=== PATIENT | female | born 1955 | race Caucasian/White ===

== ENCOUNTER 2016-12-04 14:42 | Outpatient (CLI) | payer OTHER | END 2016-12-04 14:43 | disposition home or self-care (01) | DX: E05.90 Thyrotoxicosis, unspecified without thyrotoxic crisis or storm (principal); Z79.899 Other long term (current) drug therapy ==

== ENCOUNTER 2017-07-26 15:47 | Outpatient (CLI) | payer OTHER ==
[2017-07-26 18:40] LABS: THYROID STIMULATING HORMONE 1.44 uIU/mL (0.34-5.60)
== END 2017-07-26 23:59 | disposition home or self-care (01) ==
LOC: LAB.S 15:47
PROVIDERS: ATTEND Nurse Practitioner Family
DX: E05.90 Thyrotoxicosis, unspecified without thyrotoxic crisis or storm (principal)
CPT/HCPCS: 36415; 84439; 84443

== ENCOUNTER 2017-09-29 08:25 | Outpatient (CLI) | payer OTHER ==
--- NOTE | 2017-10-01 14:02 | Mammography Report ---
DATE OF SERVICE: 09/29/2017 DIGITAL SCREENING MAMMOGRAM: 09/30/2017 CLINICAL INDICATION: A 62-year-old for screening. COMPARISON: 09/2016, 09/2015, 09/2014, 09/2013, 08/2012, 06/2011, 05/2010. TECHNIQUE: Routine CC and MLO projections were obtained of the breasts. FINDINGS: The breasts demonstrate heterogeneously dense fibroglandular parenchyma bilaterally. [place], typically benign calcifications are present, no suspicious masses, clustered microcalcifications, or regions of architectural distortion are identified. IMPRESSION: Benign findings. RECOMMENDATION: Routine annual screening unless otherwise clinically indicated. BIRADS category 2 - benign findings. STANDARD QUALIFYING STATEMENTS: 1. This examination was reviewed with the aid of Computer-Aided Detection (CAD). 2. A negative or benign imaging report should not delay biopsy if clinically suspicious findings are present. Consider surgical consultation if warranted. More than 5% of cancers are not identified by imaging. 3. Dense breasts may obscure an underlying neoplasm. TD: 09/30/2017 11:36
== END 2017-09-29 08:26 | disposition home or self-care (01) ==
LOC: DI.S 08:25
PROVIDERS: ATTEND Nurse Practitioner Family
DX: Z12.39 Encounter for other screening for malignant neoplasm of breast (principal)
CPT/HCPCS: 77067

== ENCOUNTER 2017-10-11 08:00 | Outpatient (CLI) | payer OTHER ==
[2017-10-11 18:10] LABS: CALCIUM 9.4 mg/dL (8.5-10.3); CREATININE 0.9 mg/dL (0.4-1.0)
[2017-10-11 19:57] LABS: HB2 TOTAL 15.1 g/dL; HEMOGLOBIN A1C 0.6 g/dL; HEMOGLOBIN A1C % 5.8 % (4.6-6.2)
== END 2017-10-11 08:01 | disposition home or self-care (01) ==
LOC: LAB.S 08:00
PROVIDERS: ATTEND Nurse Practitioner Family
DX: R73.01 Impaired fasting glucose (principal)
CPT/HCPCS: 36415; 80048; 83036

== ENCOUNTER 2018-02-11 11:02 | Outpatient (CLI) | payer OTHER | END 2018-02-11 11:03 | disposition home or self-care (01) | LOC: LAB.F 11:02 | PROVIDERS: ATTEND Obstetrics & Gynecology | DX: Z11.3 Encounter for screening for infections with a predominantly sexual mode of transmission (principal) | CPT/HCPCS: 36415; 81599 ==

== ENCOUNTER 2018-02-11 14:08 | Outpatient (CLI) | payer OTHER ==
[2018-02-14 17:02] LABS: HSV 2 DNA NOT DETECTED; SOURCE VULVAR LESION
== END 2018-02-11 14:09 | disposition home or self-care (01) ==
LOC: LAB.R 14:08
PROVIDERS: ATTEND Obstetrics & Gynecology
DX: N90.89 Other specified noninflammatory disorders of vulva and perineum (principal); Z11.3 Encounter for screening for infections with a predominantly sexual mode of transmission
CPT/HCPCS: 36415; 81599; 86592; 87529

== ENCOUNTER 2019-01-09 07:19 | Outpatient (CLI) | payer OTHER ==
[2019-01-09 11:00] LABS: BASOPHILS # (AUTO) 0.1 10^3/uL (0.0-0.1); BASOPHILS % (AUTO) 1.1 %; EOSINOPHILS # (AUTO) 0.2 10^3/uL (0.0-0.7); EOSINOPHILS % (AUTO) 4.3 %; HGB - HEMOGLOBIN 13.8 g/dL (12.0-16.0); LYMPHOCYTES # (AUTO) 1.7 10^3/uL (1.5-3.5); LYMPHOCYTES % (AUTO) 29.8 %; MEAN CORPUSCULAR HEMOGLOBIN 27.9 pg (27.0-31.0); MEAN CORPUSCULAR HGB CONC 33.2 g/dL (32.0-36.0); MEAN CORPUSCULAR VOLUME 84.2 fL (81.0-99.0); MEAN PLATELET VOLUME 8.2 fL (7.9-10.8); MONOCYTES # (AUTO) 0.4 10^3/uL (0.0-1.0); MONOCYTES % (AUTO) 7.3 %; NEUTROPHILS # (AUTO) 3.3 10^3/uL (1.5-6.6); NEUTROPHILS % (AUTO) 57.5 %; PLT - PLATELET COUNT 294 10^3/uL (130-450); RED BLOOD COUNT 4.93 10^6/uL (4.20-5.40); RED CELL DISTRIBUTION WIDTH 13.5 % (12.0-15.0); WHITE BLOOD COUNT 5.8 x10^3/uL (4.8-10.8)
[2019-01-09 11:38] LABS: ALBUMIN/GLOBULIN RATIO 1.1 (1.0-2.2); ALKALINE PHOSPHATASE 92 IU/L (42-121); ALT ALANINE AMINOTRANSFERASE 17 IU/L (10-60); AST ASPARTATE AMINOTRANSFERASE 20 IU/L (10-42); BILIRUBIN,TOTAL 0.7 mg/dL (0.2-1.0); BUN - BLOOD UREA NITROGEN 17 mg/dL (6-20); CALCIUM 9.5 mg/dL (8.5-10.3); CARBON DIOXIDE - CO2 29 mmol/L (21-32); CHLORIDE 100 mmol/L (101-111); CHOL/HDL RATIO 3.4 (<4.4); CHOLESTEROL 169 mg/dL; GFR - MDRD 56 (>89); GLUCOSE 119 mg/dL (70-100); HDL CHOLESTEROL 49 mg/dL; LDL CHOLESTEROL,CALCULATED 102 mg/dL; LDL/HDL RATIO 2.1 (<4.4); SODIUM 137 mmol/L (135-145); TOTAL PROTEIN 7.6 g/dL (6.7-8.2); VLDL CHOLESTEROL 18 mg/dL
[2019-01-09 11:40] LABS: HB2 TOTAL 14.7 g/dL; HEMOGLOBIN A1C 0.6 g/dL; HEMOGLOBIN A1C % 5.9 % (4.6-6.2)
[2019-01-10 10:26] LABS: HEPATITIS C ANTIBODY NON-REACTIVE (NON-REACTIVE)
== END 2019-01-09 07:20 | disposition home or self-care (01) ==
LOC: LAB.F 07:19
PROVIDERS: ATTEND Nurse Practitioner
DX: Z00.00 Encounter for general adult medical examination without abnormal findings (principal)
CPT/HCPCS: 36415; 80053; 80061; 83036; 83721; 84443; 85025; 86803

== ENCOUNTER 2019-02-13 13:53 | Outpatient (CLI) | payer OTHER ==
--- NOTE | 2019-02-14 12:30 | Mammography Report ---
Reason: SCREENING MAMMO Procedure Date: 02/13/2019 Accession Number: [id number] / [id number] Procedure: TARUN - Screening Mammo w/Bo CPT Code: FULL RESULT: EXAM: Screening Mammo w/Bo DATE: 02/13/2019 3:00 PM CLINICAL HISTORY: Routine screening. No reported personal or family history of breast cancer. TECHNIQUE: (B) - Bilateral CC and MLO views were obtained. COMPARISON: 09/29/2017 through 09/24/2014 PARENCHYMAL PATTERN: (D) - The breasts demonstrate heterogeneously dense fibroglandular parenchyma bilaterally. FINDINGS: Bilateral breasts: There are no suspicious masses, calcifications, or areas of distortion. IMPRESSION: Negative examination. BI-RADS category 1. RECOMMENDATION: (ANNUAL) - Recommend routine annual screening mammography. BI-RADS CATEGORY: (1) - Negative. STANDARD QUALIFYING STATEMENTS: 1. This examination was not reviewed with the aid of Computer-Aided Detection (CAD). 2. A negative or benign imaging report should not preclude biopsy if clinically suspicious findings are present. 3. Dense breasts may obscure an underlying neoplasm. 4. This examination was reviewed with the aid of 3D breast imaging (tomosynthesis).
== END 2019-02-13 13:54 | disposition home or self-care (01) ==
LOC: DI 13:53
DX: Z12.31 Encounter for screening mammogram for malignant neoplasm of breast (principal)
CPT/HCPCS: 77063; 77067

== ENCOUNTER 2022-07-16 09:43 | Outpatient (CLI) | payer MEDICARE, OTHER ==
--- NOTE | 2022-07-17 09:42 | Mammography Report ---
BILATERAL DIGITAL SCREENING MAMMOGRAM 3D/2D: 07/16/2022 CLINICAL: Routine screening. Comparison is made to exams dated: 02/13/2019 mammogram - [facility], 09/29/2017 ma mmogram, 09/22/2016 mammogram - [facility], 09/23/2015 mammogram - [facility], and 09/24/2014 mammogram - [facility]. Both breasts are heterogeneously dense, which may obscure small masses (category c / 51-75% glandula r tissue). No significant masses, calcifications, or other findings are seen in either breast. There has been no significant interval change. IMPRESSION: NEGATIVE There is no mammographic evidence of malignancy. A 1 year screening mammogram is recommended. Based on the Tyrer Cuzick model (a risk assessment model) the patients lifetime risk is 8.0% and her 10 year risk is 4.4%. According to the ACR, ACS, and NCCN guidelines, an annual breast MRI exam krista g with mammogram is recommended if the patients lifetime risk is 20% or greater. This exam was interpreted at Station ID: [id number]. NOTE: For mammograms, a report in lay terms will be sent to the patient. Approximately 15% of breast malignancies will not be visualized mammographically. In the management of a palpable breast mass, a negative mammogram must not discourage biopsy of a clinically suspicious lesion. Electronically Signed By: Davon Oro M.D. [email or web address]/[email or web address]:07/16/2022 17:48:01 ACR BI-RADS Category 1: Negative 3341F PARENCHYMAL PATTERN: (D) - The breast(s) demonstrate(s) heterogeneously dense fibroglandular parenchy ma. BI-RADS CATEGORY: (1) - 1 RECOMMENDATION: (ANNUAL) - Recommend routine annual screening mammography. [id number] 1 year screening LATERALITY: (B)
== END 2022-07-16 09:44 | disposition home or self-care (01) ==
LOC: DI 09:43
PROVIDERS: ATTEND Physician Assistant
DX: Z12.31 Encounter for screening mammogram for malignant neoplasm of breast (principal)

== ENCOUNTER 2023-07-27 08:47 | Outpatient (CLI) | payer MEDICARE, OTHER ==
--- NOTE | 2023-07-28 11:44 | Mammography Report ---
BILATERAL DIGITAL SCREENING MAMMOGRAM 3D/2D: 07/27/2023 CLINICAL: Routine screening. Comparison is made to exams dated: 07/16/2022 mammogram, 02/13/2019 mammogram - [facility], 09/29/2017 mammogram, and 09/22/2016 [place] [facility] Both breasts are heterogeneously dense, which may obscure small masses (category c / 51-75% glandular tissue). No significant masses, calcifications, or other findings are seen in either breast. There has been no significant interval change. IMPRESSION: NEGATIVE There is no mammographic evidence of malignancy. A 1 year screening mammogram is recommended. Based on the Tyrer Cuzick model (a risk assessment model) the patients lifetime risk is 7.5% and her 10 year risk is 4.5%. According to the ACR, ACS, and NCCN guidelines, an annual breast MRI exam krista g with mammogram is recommended if the patients lifetime risk is 20% or greater. This exam was interpreted at Station ID: [id number]. NOTE: For mammograms, a report in lay terms will be sent to the patient. Approximately 15% of breast malignancies will not be visualized mammographically. In the management of a palpable breast mass, a negative mammogram must not discourage biopsy of a clinically suspicious lesion. Electronically Signed By: Davon [email or web address]:07/27/2023 17:52:08 letter sent: No_Letter ACR BI-RADS Category 1: Negative 3341F PARENCHYMAL PATTERN: (D) - The breast(s) demonstrate(s) heterogeneously dense fibroglandular noel romero. BI-RADS CATEGORY: (1) - 1 Mammogram [id number] 1 year screening LATERALITY: (B)
== END 2023-07-27 08:48 | disposition home or self-care (01) ==
LOC: DI.S 08:47
DX: Z12.31 Encounter for screening mammogram for malignant neoplasm of breast (principal); R92.333 Mammographic heterogeneous density, bilateral breasts

== ENCOUNTER 2024-04-25 06:19 | Day surgery (SDC) | payer MEDICARE, OTHER ==
[2024-04-25] MEDS: LACTATED RINGERS 1,000 ML IV ONE ×2 (06:33→09:38)
[2024-04-25] MEDS ORDERED: DEXAMETHASONE 4 MG/ML VIAL ONE (06:51)
[2024-04-25] MEDS ORDERED: LIDOCAINE-PF 2% 10 ML AMP SUBQ ONE (06:51)
[2024-04-25] MEDS ORDERED: fentaNYL 100 MCG/2 ML VIAL ONE (06:51)
[2024-04-25] MEDS ORDERED: ONDANSETRON 4 MG/2 ML VIAL ONE (06:51)
[2024-04-25] MEDS ORDERED: PROPOFOL 200 MG/20 ML VIAL IVP ONE (06:51)
[2024-04-25] MEDS ORDERED: BUPIVACAINE 0.5% PF 10 ML VIAL ONE (07:04)
--- NOTE | 2024-04-25 07:13 | ANESTHESIA ---
Pre-Anesthesia VS, & Labs - Diagnosis UMBILICAL HERNIA - Procedure UMBILICAL HERNIA REPAIR Vital Signs: Temp Pulse Resp BP Pulse Ox O2 Flow Rate 36.9 C 59 L 15 144/66 H 98 04/25/24 06:41 04/25/24 06:41 04/25/24 06:41 04/25/24 06:41 04/25/24 06:41 Height: 5 ft 1 in Weight (kg): 77 kg Body Mass Index: 32.1 BMI Classification: Obese - NPO >8 hours - Is Patient ?: No Home Medications and Allergies Home Medications: Ambulatory Orders Cetirizine [ZyrTEC] 10 mg PO DAILY 04/18/24 Famotidine [Acid Consulting Nurse] 20 mg PO DAILY 04/18/24 Cetirizine [ZyrTEC] 10 mg PO DAILY 04/18/24 Famotidine [Acid Consulting Nurse] 20 mg PO DAILY 04/18/24 Allergies/Adverse Reactions: Allergies Allergy/AdvReac Type Severity Reaction Status Date / Time Sulfa (Sulfonamide Allergy Rash Verified 12/16/15 08:01 Antibiotics) Anes History & Medical History - Anesthetic History Anesthesia Complications: reports: Post-Operative Nausea/Vomiting Family history of Anesthesia Complications: Denies Family history of Malignant Hyperthermia: Denies - Medical History Cardiovascular: reports: Other (PVCs, pt states she can feel a flutter in her chest. no SOB.) Pulmonary: reports: None Gastrointestinal: reports: GERD, Other Urinary: reports: None Neuro: reports: None Musculoskeletal: reports: Osteoarthritis Endocrine/Autoimmune: reports: None, Other (prediabetic per pt) Blood Disorders: reports: None Skin: reports: Eczema Smoking Status: Never smoker Psychosocial: reports: No issues indicated History of Cancer?: No - Surgical History General: reports: Cholecystectomy Eyes Ears Nose Throat (EENT): reports: Other Gynecologic: reports: Hysterectomy Results - EKG Results EKG Comparison: Reviewed EKG, Normal EKG, Other (occasional PVCs) Exam General: Alert, Oriented x3, Cooperative, No acute distress Dental: WNL Mouth Openin Fingerbreadth Neck Mobility: Normal Mallampati classification: III Thyromental Distance: 4-6 cm Respiratory: Lungs clear, Normal breath sounds, No respiratory distress, No acce ssory muscle use Cardiovascular: Regular rate, Normal S1, Normal S2, No murmurs Mental/Cognitive Status: Alert/Oriented X3, Normal for patient Cognitive Status: Within normal limits Plan Anesthesia Type: General Consent for Procedure(s) Verified and Reviewed: Yes Code Status: Attempt Resuscitation ASA classification: 2-Mild systemic disease Is this case an emergency?: No
[2024-04-25] MEDS ORDERED: ONDANSETRON 4 MG/2 ML VIAL IVP PRN ×2 (07:45→10:00)
[2024-04-25] MEDS ORDERED: ePHEDrine 50 MG/ML VIAL IVP PRN (07:45)
[2024-04-25] MEDS ORDERED: NALOXONE 0.4 MG/ML VIAL IVP PRN (07:45)
[2024-04-25] MEDS ORDERED: fentaNYL 100 MCG/2 ML VIAL IVP PRN (07:45)
[2024-04-25] MEDS ORDERED: HYDROmorphone 0.5 MG/0.5 ML SYRINGE IVP PRN ×2 (07:45→10:00)
[2024-04-25] MEDS ORDERED: ATROPINE ABBOJECT 1 MG/10 ML SYRINGE IVP PRN (07:45)
[2024-04-25] MEDS: SCOPOLAMINE PATCH TOP ONE (07:51)
[2024-04-25] MEDS ORDERED: LACTATED RINGERS 1,000 ML IV SCH (08:00)
[2024-04-25] MEDS ORDERED: SCOPOLAMINE PATCH TOP SCH (08:00)
[2024-04-25] MEDS ORDERED: PROPOFOL 500 MG/50 ML 500 MG/50 ML VIAL ONE (08:12)
[2024-04-25] MEDS ORDERED: diphenhydrAMINE INJ 50 MG/ML VIAL ONE (08:30)
[2024-04-25] MEDS: BUPIVACAINE 0.5%-EPI 1:200000 PF 30 ML VIAL SUBQ ONE ×3 (08:38)
[2024-04-25] MEDS ORDERED: ePHEDrine 50 MG/ML VIAL IVP ONE (08:39)
[2024-04-25] MEDS ORDERED: ACETAMINOPHEN 1,000 MG/100 ML 1,000 MG/100 ML BAG IV ONE (08:58)
[2024-04-25] MEDS: LACTATED RINGERS 25 ML IV ONE (09:32)
--- NOTE | 2024-04-25 09:54 | OPERATIVE REPORT ---
Operative Report - General Procedure Date: 04/25/24 Planned Procedure: Umbilical herniorrhaphy Pre-Op Diagnosis: Umbilical hernia Procedure Performed: Umbilical herniorrhaphy with mesh Post Op Diagnosis: Umbilical hernia - Procedure Note Primary Surgeon: Jarvis Su MD Anesthesia Provider: MEHREEN Mendoza supervised by Diann Aguilera CRNA Anesthesia Technique: General LMA, Local (30 mL of half percent Marcaine) IV Fluids (mL): 900 Estimated Blood Loss (mL): 5 Drain/Tube Type: Other (None.) Indications: Symptomatic umbilical hernia Complications: None. - Other Other Information/Narrative: After verbal and written informed consent was obtained detailing the operation, the alternatives the operation including no operation, risks of infection, bleeding requiring transfusion with its risks, nerve injury, and and after I met with the patient confirming the surgery and the site of surgery, the patient was brought to the operative suite and placed supine on the operating table. Great care was taken to avoid pressure points to prevent pressure necrosis or nerve injury. Monitoring devices were applied along with TEDs and pneumatic compression stockings (to prevent DVT). The patient received preoperative antibiotics for surgical prophylaxis. MEHREEN Khan supervised by Diann Aguilera CRNA sedated and anesthetized the patient for the entire procedure. The patient was prepped and draped in the usual sterile manner. A "time in" then confirmed that the patient was identified with 3 identifiers (name, date, and medical record number), the history and physical was updated and in the chart, the signed consent confirming the procedure was in the chart, the patient was in the correct position, the aforementioned prophylactic measures were in place or given, we had the correct personnel and equipment to complete the procedure and that anesthesia and the surgical team were given an opportunity to express any concerns. With the agreement of everyone in the room we proceeded with the operation. A longitudinal incision was made at the base of the umbilicus and dissection was carried out down to the hernia sac using a combination of blunt dissection, sharp dissection, and Bovie electrocautery. Hemostasis was obtained using Bovie electrocautery. The sac was dissected back to the fascial defect. The fascial defect measured less than 3 cm in size. A Ventralex ST hernia patch (reference #[id number], lot# [id number], use by 2024-10-31) was obtained and deployed into the hernia defect. The mesh was secured to the fascia using 2-0 PDS and the straps superiorly and inferiorly. The fascia was then closed over the mesh using a 2-0 PDS in a [id number] fashion. This was done to further secure the hernia repair. The patient was then given an innie by suturing the skin down to the fascia. The local was injected at the fascial and skin level. The skin incision was approximated with 4-0 Monocryl in a subcuticular fashion. The skin was cleaned of its prep and Dermabond was applied. At this point a timeout was performed that confirmed that all counts were correct x2, the procedure that was performed, the blood loss, the IV fluids administered, the patient's condition, and any concerns of the operating team had. Having tolerated the procedure well, the patient was taken recovery room in good and stable condition. The plan is for outpatient discharge when the patient is adequately recovered. CPT 13454 This document was created in part using voice recognition technology. Because of the inherent limitations of the system, occasional same sounding word substitutions and grammatical errors do occur and persist despite proofreading. Please read this document for content.
[2024-04-25] MEDS ORDERED: HYDROcod/ACETAM 5/325 MG TABLET PO PRN (10:00)
[2024-04-25 10:33] VITALS: BP 125/58; O2SAT 100
--- NOTE | 2024-04-25 14:17 | ANESTHESIA POST OP EVALUATION ---
Anesthesia Post Eval - Post Anesthesia Eval Vitals: Last Vital Signs Temp 36.3 C L 04/25/24 10:18 Pulse 74 04/25/24 10:18 Resp 15 04/25/24 10:18 BP 125/58 L 04/25/24 10:18 Pulse Ox 100 04/25/24 10:18 O2 Flow Rate CV Function Including HR & BP: Stable Pain Control: Satisfactory Nausea & Vomiting: Negative Mental Status: Baseline Respiratory Status: Airway Patent Hydration Status: Satisfactory Anesthesia Complications: None
== END 2024-04-25 06:20 | disposition home or self-care (01) ==
LOC: SDS 06:19
PROVIDERS: ATTEND Surgery
DX: K42.9 Umbilical hernia without obstruction or gangrene (principal); E66.9 Obesity, unspecified; Z68.32 Body mass index [BMI] 32.0-32.9, adult; I49.3 Ventricular premature depolarization; R73.03 Prediabetes
CPT/HCPCS: 49591; C1781; J0131; J1200; J3490; J7120